=== PATIENT | female | born 1980 | race Caucasian/White ===

== ENCOUNTER 2017-03-16 00:52 | Emergency (ER) | payer OTHER ==
[~2017-03-16] VITALS: Ht 175.3 cm; Wt 61.2 kg
[2017-03-16 00:52] VITALS: BP_SYST 123
[2017-03-16 01:15] VITALS: BP_SYST 123
== END 2017-03-16 01:15 ==
LOC: SED 00:52
DX: Z02.89 Encounter for other administrative examinations (principal)